=== PATIENT | female | born 1935 ===

== ENCOUNTER 2018-06-10 08:54 | Outpatient (CLI) | payer OTHER ==
[~2018-06-10] VITALS: Ht 160 cm; Wt 57.6 kg
== END 2018-06-10 09:15 | disposition home or self-care (01) ==
LOC: OFIC 805 08:54
DX: H61.23 Impacted cerumen, bilateral (principal); H90.3 Sensorineural hearing loss, bilateral

== ENCOUNTER 2020-02-01 14:31 | Outpatient (CLI) | payer OTHER ==
[2020-02-01] MEDS ORDERED: CORTISPORIN EAR10 M1 OTIC (15:10)
== END 2020-02-01 16:00 | disposition home or self-care (01) ==
LOC: OFIC 805 14:31
PROVIDERS: ATTEND Otolaryngology
DX: H90.3 Sensorineural hearing loss, bilateral (principal); H60.8X2 Other otitis externa, left ear; H61.23 Impacted cerumen, bilateral

== ENCOUNTER 2023-10-30 09:31 | Outpatient (CLI) | payer OTHER ==
[~2023-10-30 09:31] MED LIST: CORTISPORIN EAR10 M1 OTIC
== END 2023-10-30 09:42 | disposition home or self-care (01) ==
LOC: SONOGRAMA 09:31
PROVIDERS: ATTEND Orthopaedic Surgery
DX: M54.6 Pain in thoracic spine (principal); M54.50 Low back pain, unspecified; M25.111 Fistula, right shoulder; M25.112 Fistula, left shoulder; Z88.2 Allergy status to sulfonamides; Z88.5 Allergy status to narcotic agent; Z88.6 Allergy status to analgesic agent